=== PATIENT | male | born 1990 ===

== ENCOUNTER 2017-10-23 14:27 | Inpatient (IN) | payer MEDICAID, OTHER ==
[2017-10-23 14:58] VITALS: O2SAT 99
--- NOTE | 2017-10-23 15:54 | ED PDOC ---
HPI: Psych/Substance Abuse Time Seen by Provider: 10/23/17 15:01 Chief Complaint (Nursing): Psychiatric Evaluation Chief Complaint (Provider): Psychiatric Evaluation History Per: Patient History/Exam Limitations: no limitations Onset/Duration Of Symptoms: Days (x1) Current Symptoms Are (Timing): Still Present Modifying Factor(s): None Additional Complaint(s): 27 y/o male with a history of anxiety and depression presents to the ED for psychiatric evaluation due to feeling overwhelmed from stress and would like to speak with someone. Patient was told last night by his girlfriend whom he lives with that she has been having an affair. He has also been feeling stressed due to school. Patient is not currently on any medication for his anxiety or depression. He denies any previous suicidal attempts, any suicidal or homicidal thoughts. Patient has no current plan. 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 Past Medical History Reviewed: Historical Data, Nursing Documentation, Vital Signs Vital Signs: Last Vital Signs Temp 98.5 F 10/23/17 14:55 Pulse 115 H 10/23/17 14:55 Resp 19 10/23/17 14:55 BP 124/80 10/23/17 14:55 Pulse Ox 99 10/23/17 14:55 - Medical History PMH: Anxiety, Depression - Surgical History Surgical History: No Surg Hx - Family History Family History: States: Unknown Family Hx - Living Arrangements Living Arrangements: Other (with girlfriend) - Social History Current smoker - smoking cessation education provided: No Ex-Smoker (has not smoked in the last 12 months): No Alcohol: Social (Patient admits to drinking more this past week) Drugs: Cannabis - Home Medications Home Medications: Ambulatory Orders Medication Instructions Recorded No Known Home Med 10/23/17 - Allergies Allergies/Adverse Reactions: Allergies Allergy/AdvReac Type Severity Reaction Status Date / Time No Known Allergies Allergy Verified 10/23/17 14:52 Review of Systems ROS Statement: Except As Marked, All Systems Reviewed And Found Negative Psych: Positive for: Anxiety, Depression, Other (feeling overwhelmed and stressed) Physical Exam - Reviewed Nursing Documentation Reviewed: Yes Vital Signs Reviewed: Yes - Physical Exam Appears: Positive for: Non-toxic, No Acute Distress (tearful, anxious appearing) Head Exam: Positive for: ATRAUMATIC, NORMOCEPHALIC Skin: Positive for: Normal Color, Warm, Dry Eye Exam: Positive for: EOMI, PERRL Neck: Positive for: Painless ROM, Supple Cardiovascular/Chest: Positive for: Regular Rate, Rhythm Respiratory: Positive for: Normal Breath Sounds. Negative for: Decreased Breath Sounds, Accessory Muscle Use, Respiratory Distress Gastrointestinal/Abdominal: Positive for: Soft. Negative for: Tenderness, Distended, Guarding Extremity: Positive for: Normal ROM Neurologic/Psych: Positive for: Alert, Oriented (x3), Gait (steady in ED) - Laboratory Results Result Diagrams: 10/23/17 16:41 10/23/17 16:41 - ECG O2 Sat by Pulse Oximetry: 99 (RA) Pulse Ox Interpretation: Normal Medical Decision Making Medical Decision Making: Time: 14:55 Impression: Anxiety and depression Initial Plan: -CRISIS evaluation 16:00 Patient is requesting admission due to his current emotional state. Patient does not wish to return home. Diagnosis is depression as per Dr. Arias. * EtOH serum * CMP * Drug screening * CBC * Urinalysis 1730 Labs reviewed, patient is medically stable for psychiatric admission. On re-evaluation, patient resting comfortably with no additional complaints at this time. On exam, patient remains AAOx3, in no acute distress. On exam, neck is supple, lungs CTA, cardiac RRR, abdomen is soft and non-tender, neuro exam shows no focal findings. Arrangements made for admission. Scribe Attestation: Documented by Wyatt Moreno acting as a scribe for Ute Seo PA-C. Scribe Attestation: All medical record entries made by the Scribe were at my direction and personally dictated by me. I have reviewed the chart and agree that the record accurately reflects my personal performance of the history, physical exam, medical decision making, and the department course for this patient. I have also personally directed, reviewed, and agree with the discharge instructions and disposition. Disposition - Clinical Impression Clinical Impression: Depression - Patient ED Disposition Is Patient to be Admitted: Yes Counseled Patient/Family Regarding: Diagnosis - Disposition Disposition Time: 17:33 Condition: FAIR - Pt Status Changed To: Hospital Disposition Of: Inpatient - Admit Certification Admit to Inpatient:: After my assessment, the patient will require hospitalization for at least two midnights. This is because of the severity of symptoms shown, intensity of services needed, and/or the medical risk in this patient being treated as an outpatient. - POA Present On Arrival: None Results - Lab Results Lab Results: 10/23/17 10/23/17 10/23/17 16:41 16:41 16:17 WBC 9.0 RBC 5.51 Hgb 15.0 Hct 43.7 MCV 79.3 L MCH 27.2 MCHC 34.2 RDW 13.7 Plt Count 316 MPV 7.7 Neut % (Auto) 74.4 Lymph % (Auto) 17.5 L Leslie % (Auto) 7.5 Eos % (Auto) 0.3 Baso % (Auto) 0.3 Neut # (Auto) 6.7 Lymph # (Auto) 1.6 Leslie # (Auto) 0.7 Eos # (Auto) 0.0 Baso # (Auto) 0.0 Sodium 144 Potassium 4.1 Chloride 102 Carbon Dioxide 26 Anion Gap 20 BUN 9 Creatinine 0.7 L Est GFR ( Amer) > 60 Est GFR (Non-Af Amer) > 60 Random Glucose 115 H Calcium 9.8 Total Bilirubin 0.9 AST 21 ALT 29 Alkaline Phosphatase 125 Total Protein 8.7 H Albumin 4.6 Globulin 4.1 H Albumin/Globulin Ratio 1.1 Urine Color Yellow Urine Clarity Slighty-cloudy Urine pH 6.0 Ur Specific [place] 1.025 Urine Protein 30 Urine Glucose (UA) Neg Urine Ketones Trace Urine Blood Small Urine Nitrate Negative Urine Bilirubin Negative Urine Urobilinogen 0.2-1.0 Ur Leukocyte Esterase Neg Urine RBC (Auto) 9 H Urine Microscopic WBC 2 Urine Opiates Screen Urine Methadone Screen Ur Barbiturates Screen Ur Phencyclidine Scrn Ur Amphetamines Screen U Benzodiazepines Scrn U Oth Cocaine Metabols U Cannabinoids Screen Alcohol, Quantitative < 10 10/23/17 16:17 WBC RBC Hgb Hct MCV MCH MCHC RDW Plt Count MPV Neut % (Auto) Lymph % (Auto) [place] % (Auto) Eos % (Auto) Baso % (Auto) Neut # (Auto) Lymph # (Auto) Leslie # (Auto) Eos # (Auto) Baso # (Auto) Sodium Potassium Chloride Carbon Dioxide Anion Gap BUN Creatinine Est GFR ( Amer) Est GFR (Non-Af Amer) Random Glucose Calcium Total Bilirubin AST ALT Alkaline Phosphatase Total Protein Albumin Globulin Albumin/Globulin Ratio Urine Color Urine Clarity Urine pH Ur Specific [place] Urine Protein Urine Glucose (UA) Urine Ketones Urine Blood Urine Nitrate Urine Bilirubin Urine Urobilinogen Ur Leukocyte Esterase Urine RBC (Auto) Urine Microscopic WBC Urine Opiates Screen Negative Urine Methadone Screen Negative Ur Barbiturates Screen Negative Ur Phencyclidine Scrn Negative Ur Amphetamines Screen Negative U Benzodiazepines Scrn Negative U Oth Cocaine Metabols Negative U Cannabinoids Screen Negative Alcohol, Quantitative
[2017-10-23 16:35] LABS: URINE BILIRUBIN NEGATIVE (NEGATIVE); URINE BLOOD SMALL (NEGATIVE); URINE CLARITY SLIGHTY-CLOUDY (Clear); URINE COLOR YELLOW (YELLOW); URINE GLUCOSE (UA) NEG (Normal); URINE LEUKOCYTE ESTERASE NEG Leu/uL (Negative); URINE PROTEIN 30 mg/dL (NEGATIVE); URINE UROBILINOGEN 0.2-1.0 mg/dL (0.2-1.0)
[2017-10-23 16:45] LABS: BASO % 0.3 % (0.0-2.0); EOS % 0.3 % (0.0-4.0); LYMPH # 1.6 K/uL (1.0-4.3); LYMPH % 17.5 % (20.0-40.0); MEAN CELL VOLUME 79.3 fl (80.0-94.0); MEAN CORPUSCULAR HEMOGLOBIN 27.2 pg (27.0-31.0); MEAN CORPUSCULAR HGB CONC 34.2 g/dL (33.0-37.0); MEAN PLATELET VOLUME 7.7 fl (7.2-11.7); MONO # 0.7 K/uL (0.0-0.8); MONO % 7.5 % (0.0-10.0); NEUT # 6.7 K/uL (1.8-7.0); NEUT % 74.4 % (50.0-75.0); NRBC % 0.5 % (0.0-0.0); RBC 5.51 Mil/uL (4.40-5.90); RED CELL DISTRIBUTION WIDTH 13.7 % (11.5-14.5)
[2017-10-23 16:48] LABS: BARBITURATES, UR NEGATIVE (NEGATIVE); BENZODIAZEPINES, UR NEGATIVE (NEGATIVE); OPIATES, UR NEGATIVE (NEGATIVE); PHENCYCLIDINE, UR NEGATIVE (NEGATIVE)
[2017-10-23 16:55] LABS: ALB/GLOB RATIO 1.1 (1.0-2.1); ALBUMIN 4.6 g/dL (3.5-5.0); ALT/SGPT 29 U/L (21-72); AST/SGOT 21 U/L (17-59); BLOOD UREA NITROGEN 9 mg/dl (9-20); CALCIUM 9.8 mg/dL (8.4-10.2); GFR AFRICAN-AMERICAN > 60; GFR NON-AFRICAN AMERICAN > 60
[2017-10-23] MEDS ORDERED: Magnesium Hydroxide Susp 30 ml UD PO PRN (20:18)
[2017-10-23] MEDS ORDERED: DiphenhydrAMINE 50 mg/ml Inj IM PRN (20:18)
--- NOTE | 2017-10-23 20:56 | PCM.BM ---
<Rachana Jasso - Last Filed: 10/23/17 20:54> Treatment Plan Problems - Problems identified on initial assessmt Hopelessness/Helplessness Date Initiated: 10/23/17 Time Initiated: 20:54 Assessment reference: NA Status: Active Altered Sleep Pattern Date Initiated: 10/23/17 Time Initiated: 20:56 Assessment reference: NA Status: Active Treatment assets and liabiliti Patient Assests: self-reliant, ADL independent, physically healthy, good support system, negotiates basic needs Patient Liabilities: relationship conflicts - Milieu Protocol Maintain good personal hygiene: daily Remind patient to perform daily oral care , daily Assist patient to perform ADL's, every shift Encourage regular showers Conduct patient checks and document Observation sheet: Q15 minutes Maintain personal safety: every shift Educate patient to report safety concerns to staff, every shift Monitor environment for contraband/sharps Medication safety: Monitor for expected outcome, potential side effects: every shift, Assess barriers to learning: every shift, Assess readiness for medication education: every shift <Huong Nguyen - Last Filed: 10/26/17 16:18> Treatment assets and liabiliti Patient Assests: adapts well, cooperative, educated, insightful (pt minimizing sxs leading to admission-refusing medications-ambivalence regarding aftercare), motivated, resourceful, self-reliant, cognitively intact, good interpersonal skills Patient Liabilities: relationship conflicts, substance abuse Family Contact Family involvement: Family/SO is involved Family contact: Family has been contacted by patient (pt. has been communciating with cousin/nephew but has not notified mother of admission), Patient declines to allow family contact at present - Goals for Treatment Patient goals for treatment: Patient to continue stabilization on 3NP through medication management and group/supportive therapy. Patient to be encouraged to attend groups regularly to promote self-awareness, compliance, and improve insight, coping skills and self-esteem. Patient to be provided with referral for appropriate level of aftercare to reduce risk of future hospitalizations and ensure safety in the community. Discharge/Continuing Care - Education Needs Education Needs: Patient Medication, Patient Diagnosis/Disease Process, Patient Coping Skills, Patient Aftercare Safety Plan - Discharge Discharge Criteria: Tolerates medication w/o severe side effects, Free of Suicidal thoughts, Normal sleep pattern, Ability to care for self, Reduction of target symptoms Discharge to:: Home, With Family - Treatment Team Participation Patient/Family/SO Statement: 10/26/17 16:21 Pt. attended tx team this morning and was able to engage in discussion regarding progress on 3NP. Pt. superficially cooperative and pleasant. Pt. mostly socially withdrawn on 3NP. Pt. appears to be minimizing precursors to hospitalization and is refusing medications stating "I don't think I need them. I'll be fine." Pt. agreeable but ambivalent regarding aftercare stating "Ill go to student counseling. I have to focus on school." Psychoeducation regarding importance of prioritizing aftercare provided. Pt. reports improvement in depression and anxity since admission. Pt. denies SI/HI and is able to contract for safety on 3NP. No harmful behaviors noted. Discussed with Family/SO: No Was Patient/Family/SO present at Treatment Team Meeting: Yes <Charissa Stevens - Last Filed: 10/27/17 08:41> - Diagnosis (1) Depression Status: Acute Interventions: psychotherapy, pharmacotherapy 10/27/17 08:41
[2017-10-24 07:11] LABS: T4 10.5 ug/dl (5.5-11.0)
--- NOTE | 2017-10-24 14:45 | PCM.PSYCH ---
Initial Psychiatric Evaluation - Initial Psychiatric Evaluation Type of Admission: Voluntary Legal Status: Capacity Chief Complaint (in patient's own words): I feel I am in shock Patient's Reaction to Hospitalization: pt requested help History of Present Illness and Precipitating Events: pt without previous psychiatric diagnosis or treatment , reportedly has been having increasing conflict with his girl friend for about past three months as he was unable to spend enough time with her , day before presenting to ER pt realized she is having an affair pt became increasingly depressed , feeling hopeless and helpless, on day of evaluation he reported to his cousin he was having suicidal ideations, he advised him to come to hospital pt reported feeling helpless and hopeless with passive suicidal ideations , no plan on the unit, reported decreased sleep with early insomnia, poor appetite , increased anxiety and constant crying no reported manic symptoms, no reported psychotic symptoms Current Medications: Active Medications Generic Name Dose Route Start Last Admin Trade Name Freq PRN Reason Stop Dose Admin Acetaminophen 650 mg 10/23/17 20:18 Tylenol 325mg Tab PO Q4 PRN Pain, moderate (4-7) Al Hydrox/Mg Hydrox/Simethicone 30 ml 10/23/17 20:18 Maalox Plus 30 Ml PO Q4 PRN Dyspepsia Diphenhydramine HCl 50 mg 10/23/17 20:18 Benadryl IM Q6 PRN Extrapyramidal S/S Unable PO Diphenhydramine HCl 50 mg 10/23/17 20:18 Benadryl PO Q6 PRN Extrapyramidal Symptoms Escitalopram Oxalate 5 mg 10/24/17 11:30 Lexapro PO DAILY CONRAD Haloperidol 5 mg 10/23/17 20:18 Haldol PO Q4 PRN Agitation Haloperidol Lactate 5 mg 10/23/17 20:18 Haldol IM Q4 PRN Agitation, Unable to Take PO Lorazepam 2 mg 10/23/17 20:18 Ativan IM Q4 PRN Anxiety/Agitation,Unable PO Lorazepam 1 mg 10/23/17 20:18 Ativan PO Q4 PRN Anxiety/Agitation Magnesium Hydroxide 30 ml 10/23/17 20:18 Milk Of Magnesia PO HS PRN Constipation Trazodone HCl 50 mg 10/24/17 22:00 Desyrel PO HS CONRAD Past Psychiatric History - Past Psychiatric History Previous Treatment History: Inpatient Explanation of prior treatment: non reported History of ETOH/Drug Use: non reported urine toxicology negative Pertinent Medical Hx (Current Medical&Sleep Prob, Allergies): Allergies Allergy/AdvReac Type Severity Reaction Status Date / Time No Known Allergies Allergy Verified 10/23/17 14:52 No Known Home Med 10/23/17 Mental Status Examination - Personal Presentation Personal Presentation: Looks stated age - Affect Affect: Constricted - Motor Activity Motor Activity: Psychomotor Retardation - Reliability in Providing Information Reliability in Providing Information: Fair - Speech Speech: Relevant - Mood Mood: Depressed, Anxious - Formal Thought Process Formal Thought Process: Circumstantial - Hallucinations/Delusions Additional comments: pt denied psychotic symptoms, non elicited - Obsessions/Compulsions Obsessions: No Compulsions: No - Cognitive Functions Orientation: Person, Place, Situation Sensorium: Alert Attention/Concentration: Attentive Estimate of Intelligence: Average - Risk Risk: Suicidal, Diminished functioning - Strength & Assets Inventory Strength & Assets Inventory: Education - Limitations Additional comments: social support DSM 5 DX - DSM 5 DSM 5 Diagnosis: major depression single episode severe without psychotic features - Recommended/Plan of Treatment Treatment Recommendations and Plan of Treatment: start lexapro 5mg daily with plan to uptitrate trazodone 50mg qhs for insomnia CBT group and supportive therapy
--- NOTE | 2017-10-24 16:08 | CP.PCM.CON ---
History of Present Illness - History of Present Illness History of Present Illness: This is a 27 yo male with pmh of anxiety and depression who presented to the ED due to anxiety and stress after finding that his girlfriend that she has been having an affair. He denies suicidal ideation and has no plan for any suicidal attempts. Denies any other problems. Review of Systems - Review of Systems Review of Systems: A 12 point review of systems was conducted and found to be negative other than what was mentioned in the HPI. Past Patient History - Infectious Disease Hx of Infectious Diseases: None - Past Social History Alcohol: Social (Patient admits to drinking more this past week) Drugs: Cannabis - CARDIAC Hx Cardiac Disorders: No Hx Heart Murmur: Yes - PULMONARY Hx Tuberculosis: No - NEUROLOGICAL HX Cerebrovascular Accident: No Hx Seizures: No - HEENT Hx HEENT Problems: No - ENDOCRINE/METABOLIC Hx Endocrine Disorders: No - HEMATOLOGICAL/ONCOLOGICAL Hx Cancer: No Hx Human Immunodeficiency Virus (HIV): No - INTEGUMENTARY Hx Dermatological Problems: No - MUSCULOSKELETAL/RHEUMATOLOGICAL Hx Musculoskeletal Disorders: No - GASTROINTESTINAL Hx Bowel Surgery: No - GENITOURINARY/GYNECOLOGICAL Hx Genitourinary Disorders: No Hx Sexually Transmitted Disorders: No - PSYCHIATRIC Hx Bipolar Disorder: No Hx Depression: Yes Hx Substance Use: No - SURGICAL HISTORY Hx Surgeries: No - ANESTHESIA Hx Anesthesia: No Meds Allergies/Adverse Reactions: Allergies Allergy/AdvReac Type Severity Reaction Status Date / Time No Known Allergies Allergy Verified 10/23/17 14:52 - Medications Medications: Current Medications Acetaminophen (Tylenol 325mg Tab) 650 mg PO Q4 PRN PRN Reason: Pain, moderate (4-7) Al Hydrox/Mg Hydrox/Simethicone (Maalox Plus 30 Ml) 30 ml PO Q4 PRN PRN Reason: Dyspepsia Diphenhydramine HCl (Benadryl) 50 mg IM Q6 PRN PRN Reason: Extrapyramidal S/S Unable PO Diphenhydramine HCl (Benadryl) 50 mg PO Q6 PRN PRN Reason: Extrapyramidal Symptoms Escitalopram Oxalate (Lexapro) 5 mg PO DAILY CONRAD Haloperidol (Haldol) 5 mg PO Q4 PRN PRN Reason: Agitation Haloperidol Lactate (Haldol) 5 mg IM Q4 PRN PRN Reason: Agitation, Unable to Take PO Lorazepam (Ativan) 2 mg IM Q4 PRN PRN Reason: Anxiety/Agitation,Unable PO Lorazepam (Ativan) 1 mg PO Q4 PRN PRN Reason: Anxiety/Agitation Magnesium Hydroxide (Milk Of Magnesia) 30 ml PO HS PRN PRN Reason: Constipation Trazodone HCl (Desyrel) 50 mg PO HS [facility] Physical Exam - Additional Findings Additional findings: Physical exam: Constitutional- cooperative, awake, alert Head- NCAT, PERRL Eye- PERRL, EOMI ENT- normal exam, MMM. Neck- normal inspection, supple, no JVD Respiratory- CTAB, no wheezes rales rhonchi Cardiovascular- RRR, +S1, +S2 no MRG GI/Abdominal- normal bowel sounds, soft, no mass, no hsm Skin- warm, dry Extremities Exam- normal capillary refill, normal inspection Neurological Exam- alert, awake, oriented Psych- depressed mood, normal affect Results - Vital Signs Recent Vital Signs: Last Vital Signs Temp 98.5 F 10/23/17 17:57 Pulse 115 H 10/23/17 17:57 Resp 19 10/23/17 17:57 BP 124/80 10/23/17 17:57 Pulse Ox 99 10/23/17 18:02 - Labs Result Diagrams: 10/23/17 16:41 10/23/17 16:41 Labs: Laboratory Results - last 24 hr 10/23/17 10/23/17 10/23/17 16:17 16:17 16:41 WBC RBC Hgb Hct MCV MCH MCHC RDW Plt Count MPV Neut % (Auto) Lymph % (Auto) [place] % (Auto) Eos % (Auto) Baso % (Auto) Neut # (Auto) Lymph # (Auto) [place] # (Auto) Eos # (Auto) Baso # (Auto) Sodium 144 Potassium 4.1 Chloride 102 Carbon Dioxide 26 Anion Gap 20 BUN 9 Creatinine 0.7 L Est GFR ( Amer) > 60 Est GFR (Non-Af Amer) > 60 Random Glucose 115 H Hemoglobin A1c Calcium 9.8 Total Bilirubin 0.9 AST 21 ALT 29 Alkaline Phosphatase 125 Total Protein 8.7 H Albumin 4.6 Globulin 4.1 H Albumin/Globulin Ratio 1.1 Triglycerides Cholesterol LDL Cholesterol Direct HDL Cholesterol Thyroxine (T4) TSH 3rd Generation Urine Color Yellow Urine Clarity Slighty-cloudy Urine pH 6.0 Ur Specific [place] 1.025 Urine Protein 30 Urine Glucose (UA) Neg Urine Ketones Trace Urine Blood Small Urine Nitrate Negative Urine Bilirubin Negative Urine Urobilinogen 0.2-1.0 Ur Leukocyte Esterase Neg Urine RBC (Auto) 9 H Urine Microscopic WBC 2 Urine Opiates Screen Negative Urine Methadone Screen Negative Ur Barbiturates Screen Negative Ur Phencyclidine Scrn Negative Ur Amphetamines Screen Negative U Benzodiazepines Scrn Negative U Oth Cocaine Metabols Negative U Cannabinoids Screen Negative Alcohol, Quantitative < 10 10/23/17 10/24/17 10/24/17 16:41 05:50 05:50 WBC 9.0 RBC 5.51 Hgb 15.0 Hct 43.7 MCV 79.3 L MCH 27.2 MCHC 34.2 RDW 13.7 Plt Count 316 MPV 7.7 Neut % (Auto) 74.4 Lymph % (Auto) 17.5 L [place] % (Auto) 7.5 Eos % (Auto) 0.3 Baso % (Auto) 0.3 Neut # (Auto) 6.7 Lymph # (Auto) 1.6 [place] # (Auto) 0.7 Eos # (Auto) 0.0 Baso # (Auto) 0.0 Sodium Potassium Chloride Carbon Dioxide Anion Gap BUN Creatinine Est GFR ( Amer) Est GFR (Non-Af Amer) Random Glucose Hemoglobin A1c 5.3 Calcium Total Bilirubin AST ALT Alkaline Phosphatase Total Protein Albumin Globulin Albumin/Globulin Ratio Triglycerides 56 Cholesterol 151 LDL Cholesterol Direct 84 HDL Cholesterol 42 Thyroxine (T4) 10.5 TSH 3rd Generation 2.22 Urine Color Urine Clarity Urine pH Ur Specific [place] Urine Protein Urine Glucose (UA) Urine Ketones Urine Blood Urine Nitrate Urine Bilirubin Urine Urobilinogen Ur Leukocyte Esterase Urine RBC (Auto) Urine Microscopic WBC Urine Opiates Screen Urine Methadone Screen Ur Barbiturates Screen Ur Phencyclidine Scrn Ur Amphetamines Screen U Benzodiazepines Scrn U Oth Cocaine Metabols U Cannabinoids Screen Alcohol, Quantitative Assessment & Plan - Assessment and Plan (Free Text) Plan: ASSESSMENT/PLAN This is a 27 yo male admitted to the inpatient psychiatry walker for depression 1) Major depression, single episode, severe, without psychotic features - Management as per psychiatry - Labwork, vitals unremarkable
--- NOTE | 2017-10-25 14:59 | PCM.PYCHPN ---
Psychiatric Progress Note - Psychiatric Progress Note Patient seen today, length of contact: pt evaluated discussed with team chart reviewed Patient Chief Complaint: I am mourning the relation but I need to concentrate on myself Problems Identified/Issues Discussed: pt evaluated, continues to present with depressed mood and anxious affect reported mourning along term relation, pt showing insight agrees he needs to concentrate on his recovery , agreed to start outpatient therapy with school counseling services pt compliant with lexapro, no reported side effects, discussed increasing it to 10mg pt continues to report passive suicidal ideations feeling anhedonic at times but denied active plans or intent on the unit , discussed with pt challenging current negative thoughts and encouraged to attend groups Medical Problems: non reported DSM 5 Symptoms Update: major depression single episode severe without psychotic features Medication Change: Yes (increase lexapro) Medical Record Reviewed: Yes Mental Status Examination - Cognitive Function Orientation: Person, Place, Situation Attention: WNL Concentration: WNL Association: WNL Fund of Knowledge: WN Decription of patient's judgement and insights: fair insight and judgment - Mood Mood: Depressed, Anxious - Affect Affect: Constricted - Formal Thought Process Formal Thought Process: Circumstantial Psychotic Thoughts and Behaviors: pt denied perceptual disturbances, non elicited - Suicidal Ideation Suicidal Ideation: No - Homicidal Ideation Homicidal Ideation: No Goal/Treatment Plan - Goal/Treatment Plan Need for Continued Stay: Discharge may exacerbated symptoms Progress Toward Problem(s) and Goals/Treatment Plan: increase lexapro 5mg bid trazodone 50mg qhs for insomnia CBT group and supportive therapy Estimated Date of D/C: 10/27/17
[2017-10-26] MEDS: Alum-Mag Hydrox-Simethicone Susp (30 mL) PO PRN (03:43)
--- NOTE | 2017-10-26 14:51 | PCM.PYCHPN ---
Psychiatric Progress Note - Psychiatric Progress Note Patient seen today, length of contact: pt evaluated discussed with team chart reviewed Patient Chief Complaint: I prefer not to take medicine, I want to continue with therapy only Problems Identified/Issues Discussed: pt evaluated with treatment team , reported better mood, presenting with brighter affect, able to verbalize coping skills with his current loss, pt having social support from his cousin and mother, also motivated to start therapy with college counseling , pt refusing medications, discussed with him that antidepressant are beneficial when starting therapy , educated pt risks versus benifits pt attending groups and more interactive with staff denied any current suicidal or homicidal ideations denied perceptual disturbances Medical Problems: non reported DSM 5 Symptoms Update: major depression recurrent severe without psychotic features Medication Change: No Medical Record Reviewed: Yes Mental Status Examination - Cognitive Function Orientation: Person, Place, Situation Attention: WNL Concentration: WNL Association: WNL Fund of Knowledge: WN Decription of patient's judgement and insights: fair insight and judgment - Mood Mood: Anxious, Neutral - Affect Affect: Constricted - Speech Speech: Appropriate - Formal Thought Process Formal Thought Process: No Impairment Psychotic Thoughts and Behaviors: pt denied perceptual disturbances, non elicited - Suicidal Ideation Suicidal Ideation: No - Homicidal Ideation Homicidal Ideation: No Goal/Treatment Plan - Goal/Treatment Plan Need for Continued Stay: Discharge may exacerbated symptoms Progress Toward Problem(s) and Goals/Treatment Plan: encourage medication compliance lexapro 5mg bid trazodone 50mg qhs for insomnia CBT group and supportive therapy Estimated Date of D/C: 10/27/17
[2017-10-27] MEDS: Alum-Mag Hydrox-Simethicone Susp (30 mL) PO PRN (07:29)
--- NOTE | 2017-10-27 10:58 | PCM.PYCHDC ---
Mental Status Examination - Mental Status Examination Orientation: Person, Place, Situation Memory: Intact Mood: Neutral Speech: Appropriate Attention: WNL Concentration: WNL Association: WNL Fund of Knowledge: WNL Formal Thought Process: No Impairment Description of patient's judgement and insight: fair insight and judgment Psychotic Thoughts and Behaviors: pt denied perceptual disturbances, non elicited Suicidal Ideation: No Current Homicidal Ideation?: No Discharge Summary - Discharge Note Reason for Hospitalization: pt requested help pt without previous psychiatric diagnosis or treatment , reportedly has been having increasing conflict with his girl friend for about past three months as he was unable to spend enough time with her , day before presenting to ER pt realized she is having an affair pt became increasingly depressed , feeling hopeless and helpless, on day of evaluation he reported to his cousin he was having suicidal ideations, he advised him to come to hospital pt reported feeling helpless and hopeless with passive suicidal ideations , no plan on the unit, reported decreased sleep with early insomnia, poor appetite , increased anxiety and constant crying no reported manic symptoms, no reported psychotic symptoms Consultations:: List each consultation separately and include: 1. Reason for request. 2. Findings. 3. Follow-up Summary of Hospital Course include:: 1. Description of specific treatment plan utilized for patients during their course of treatmen. 2. Summarize the time- course for resolution of acute symptoms and/or regressed behaviors. 3. Describe issues identified and worked on during hospitalization. 4. Describe medication utilized. 5. Describe medical problems identified and treated. 6. Reassessment of suicide risk Summary of Hospital Course: pt on admission was started on lexapro 5mg CBT, supportive and group therapy provided, pt was compliant with treatment, on discharge mental status was stable, denied any current suicidal or homicidal ideations denied perceptual disturbances follow up arranged by psychotherapist social worker for outpatient treatment and therapy - Diagnosis (1) Depression Status: Acute - Final Diagnosis (DSM 5) Condition upon Discharge: FAIR DSM 5: major depression single episode severe without psychotic features Disposition: HOME/ ROUTINE Follow-up Treatment Plan: encourage medication compliance lexapro 5mg bid trazodone 50mg qhs for insomnia CBT group and supportive therapy Prescriptions/Medication Reconciliation: Escitalopram [Lexapro] 5 mg PO DAILY 30 Days #30 tab - Antipsychotic Medications Pt discharged on 2 or more routine antipsychotic medications: No
[2017-10-27 11:20] VITALS: BP 121/87; PULSE 91; RESP 18; TEMP 97.9
== END 2017-10-27 10:22 | disposition home or self-care (01) | DRG 430 ==
LOC: H.ER 14:27 → H.ERHOLD 17:33 → H.PSYCH 18:14
PROVIDERS: ADMIT Psychiatry & Neurology Psychiatry; ATTEND Psychiatry & Neurology Psychiatry
PROC: GZHZZZZ Group Psychotherapy (ICD-10-PCS; principal; 2017-10-23)
PROC: GZ58ZZZ Individual Psychotherapy, Cognitive-Behavioral (ICD-10-PCS; 2017-10-23)
PROC: GZ56ZZZ Individual Psychotherapy, Supportive (ICD-10-PCS; 2017-10-23)
DX: F32.2 Major depressive disorder, single episode, severe without psychotic features (principal); R45.851 Suicidal ideations; F41.9 Anxiety disorder, unspecified; G47.00 Insomnia, unspecified

== ENCOUNTER 2017-11-14 14:02 | Emergency (ER) | payer MEDICAID, OTHER ==
[2017-11-14 14:09] VITALS: PULSE 84; RESP 20; TEMP 97.8; O2SAT 98
--- NOTE | 2017-11-14 14:23 | ED PDOC ---
HPI: Psych/Substance Abuse Time Seen by Provider: 11/14/17 14:16 Chief Complaint (Nursing): Psychiatric Evaluation History Per: Patient Onset/Duration Of Symptoms: Other (2 weeks) Current Symptoms Are (Timing): Still Present Suicide/Self Injury Attempted (Context): None Modifying Factor(s): None Severity: Mild Associated Symptoms: Depression. denies: Suicidal Thoughts, Suicidal Plan Additional Complaint(s): Depressed over incident that occurred 2 weeks ago. Denies suicidal or homicidal ideation. Past Medical History Vital Signs: Last Vital Signs Temp 97.8 F 11/14/17 14:06 Pulse 84 11/14/17 14:06 Resp 20 11/14/17 14:06 BP Pulse Ox 98 11/14/17 14:06 - Medical History PMH: Anxiety, Depression Denies: Bipolar Disorder, Diabetes, Hepatitis, HIV, HTN, Seizures, Sexually Transmitted Disease - Family History Family History: States: Unknown Family Hx - Home Medications Home Medications: Ambulatory Orders Medication Instructions Recorded Escitalopram [Lexapro] 5 mg PO DAILY 30 Days #30 tab 10/27/17 - Allergies Allergies/Adverse Reactions: Allergies Allergy/AdvReac Type Severity Reaction Status Date / Time No Known Allergies Allergy Verified 11/14/17 14:05 Review of Systems ROS Statement: Except As Marked, All Systems Reviewed And Found Negative Psych: Positive for: Depression. Negative for: Suicidal ideation Physical Exam - Reviewed Nursing Documentation Reviewed: Yes Vital Signs Reviewed: Yes - Physical Exam Appears: Positive for: Non-toxic, No Acute Distress Head Exam: Positive for: ATRAUMATIC, NORMAL INSPECTION, NORMOCEPHALIC Skin: Positive for: Normal Color, Warm, DRY Eye Exam: Positive for: EOMI, Normal appearance, PERRL ENT: Positive for: Normal ENT Inspection Neck: Positive for: Normal, Painless ROM Cardiovascular/Chest: Positive for: Regular Rate, Rhythm Respiratory: Positive for: CNT, Normal Breath Sounds Gastrointestinal/Abdominal: Positive for: Normal Exam, Soft Back: Positive for: Normal Inspection Extremity: Positive for: Normal ROM Neurologic/Psych: Positive for: Alert, Oriented - ECG O2 Sat by Pulse Oximetry: 98 Disposition - Clinical Impression Clinical Impression: Depression - Disposition Referrals: [facility] [Outside] Disposition: Routine/Home Disposition Time: 15:07 Condition: FAIR Instructions: Depression Forms: [employer] (Belarusian)
== END 2017-11-14 15:41 | disposition home or self-care (01) ==
LOC: H.ER 14:02
DX: F32.9 Major depressive disorder, single episode, unspecified (principal); F41.9 Anxiety disorder, unspecified

== ENCOUNTER 2018-02-25 10:39 | Emergency (ER) | payer MEDICAID, OTHER ==
[2018-02-25 10:43] VITALS: BP 126/81; PULSE 77; RESP 16; TEMP 97.8; O2SAT 98; BMI 29.5
--- NOTE | 2018-02-25 11:16 | ED PDOC ---
Lower Extremity Pain/Injury Time Seen by Provider: 02/25/18 10:41 Chief Complaint (Nursing): Lower Extremity Problem/Injury Chief Complaint (Provider): Arm pain History Per: Patient Additional Complaint(s): 27 yo male, no PMH, presents to ED for evaluation of puncture wound. Pt reports he was jumping over the fence yesterday and caught his foot on the wire fence, ustained abrasion to rt. ankle w/ redness/ swelling w/ minimal bleeding. stated the bleeding didn't stopped fr. yesterday. TD 4 yrs. 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 Past Medical History Reviewed: Nursing Documentation, Vital Signs Vital Signs: Last Vital Signs Temp 97.8 F 02/25/18 10:42 Pulse 77 02/25/18 10:42 Resp 16 02/25/18 10:42 BP 126/81 02/25/18 10:42 Pulse Ox 98 02/25/18 10:42 - Medical History PMH: Anxiety, Depression Denies: Bipolar Disorder, Diabetes, Hepatitis, HIV, HTN, Seizures, Sexually Transmitted Disease - Family History Family History: States: Unknown Family Hx - Living Arrangements Living Arrangements: With Family - Social History Current smoker - smoking cessation education provided: No Alcohol: Social Drugs: Denies - Home Medications Home Medications: Ambulatory Orders Medication Instructions Recorded Escitalopram [Lexapro] 5 mg PO DAILY 30 Days #30 tab 10/27/17 Cephalexin [cephalexin] 500 mg PO BID #14 cap 02/25/18 Ibuprofen [Motrin] 600 mg PO Q6 #20 tab 02/25/18 - Allergies Allergies/Adverse Reactions: Allergies Allergy/AdvReac Type Severity Reaction Status Date / Time No Known Allergies Allergy Verified 11/14/17 14:05 Review of Systems ROS Statement: Except As Marked, All Systems Reviewed And Found Negative Skin: Positive for: Other (puncture wound) Physical Exam - Reviewed Nursing Documentation Reviewed: Yes Vital Signs Reviewed: Yes - Physical Exam Appears: Positive for: Well, Non-toxic, No Acute Distress Head Exam: Positive for: ATRAUMATIC, NORMAL INSPECTION, NORMOCEPHALIC Skin: Positive for: Normal Color, Warm, DRY Eye Exam: Positive for: EOMI, Normal appearance, PERRL ENT: Positive for: Normal ENT Inspection Neck: Positive for: Normal, Painless ROM Cardiovascular/Chest: Positive for: Regular Rate, Rhythm Respiratory: Positive for: CNT, Normal Breath Sounds Gastrointestinal/Abdominal: Positive for: Normal Exam, Soft Back: Positive for: Normal Inspection Extremity: Positive for: Normal ROM, Swelling, Other (puncture wound to lateral aspct of right ankle, mild erythema surrounding. no active bleeding at this time ) Neurologic/Psych: Positive for: Alert, Oriented - ECG O2 Sat by Pulse Oximetry: 98 Medical Decision Making Medical Decision Making: XR obtained: NAd, as read by PRO Keflex PO administered. T.dap UTD Site cleaned and dressed by policy writer typist. Wound care discussed. Pt referred to podiatry clinic Disposition - Clinical Impression Clinical Impression: Puncture wound - Patient ED Disposition Is Patient to be Admitted: No - Disposition Referrals: FAMILY PROVIDER,NO [Primary Care Provider] - Podiatry Clinic [Outside] Disposition: Routine/Home Disposition Time: 12:55 Condition: STABLE Prescriptions: Cephalexin [cephalexin] 500 mg PO BID #14 cap Ibuprofen [Motrin] 600 mg PO Q6 #20 tab Instructions: Wound Care (DC) Forms: [employer] (Frisian)
--- NOTE | 2018-02-25 11:57 | RAD ---
Date of service: 02/25/2018 PROCEDURE: Right Ankle Radiographs. HISTORY: puncture wound, edema COMPARISON: None FINDINGS: BONES: No acute fracture. JOINTS: Normal. No osteoarthritis. Ankle mortise maintained. Talar dome intact SOFT TISSUES: Small ankle joint effusion. OTHER FINDINGS: None. IMPRESSION: No demonstrated fracture, dislocation or evidence of osseous injury.
[2018-02-25] MEDS ORDERED: Absorbable Gelatin Sponge Size 12-7 ONE (12:49)
== END 2018-02-25 13:07 | disposition home or self-care (01) ==
LOC: SUPCPDRO 10:39 → H.ER 10:39
DX: Z86.59 Personal history of other mental and behavioral disorders (principal); Z23 Encounter for immunization

== ENCOUNTER 2018-03-12 05:10 | Emergency (ER) | payer OTHER ==
[2018-03-12 05:28] VITALS: BMI 30.9
--- NOTE | 2018-03-12 05:31 | ED PDOC ---
HPI: Psych/Substance Abuse Chief Complaint (Provider): ETOH History Per: Patient Additional Complaint(s): 27 yo male, no PMH, presents to ED BIB friends for evaluation of abdominal cramping, and severe nausea and vomiting after drinking Zehra. No drug use. <Sherita Cormier - Last Filed: 03/12/18 05:50> <Jose David Katz - Last Filed: 03/12/18 06:00> Time Seen by Provider: 03/12/18 05:18 Chief Complaint (Nursing): Alcohol Ingestion Past Medical History Reviewed: Nursing Documentation, Vital Signs - Medical History PMH: Anxiety, Depression Denies: Bipolar Disorder, Diabetes, Hepatitis, HIV, HTN, Seizures, Sexually Transmitted Disease - Family History Family History: States: Unknown Family Hx - Living Arrangements Living Arrangements: With Family - Social History Current smoker - smoking cessation education provided: Yes Alcohol: Social Drugs: Cannabis <Sherita Cormier A - Last Filed: 03/12/18 05:50> Vital Signs: Last Vital Signs Temp 98.7 F 03/12/18 05:19 Pulse 72 03/12/18 05:19 Resp 19 03/12/18 05:19 BP 125/80 03/12/18 05:19 Pulse Ox 99 03/12/18 05:19 <Jose David Katz - Last Filed: 03/12/18 06:00> - Home Medications Home Medications: Ambulatory Orders Medication Instructions Recorded Escitalopram [Lexapro] 5 mg PO DAILY 30 Days #30 tab 10/27/17 Cephalexin [cephalexin] 500 mg PO BID #14 cap 02/25/18 Ibuprofen [Motrin] 600 mg PO Q6 #20 tab 02/25/18 - Allergies Allergies/Adverse Reactions: Allergies Allergy/AdvReac Type Severity Reaction Status Date / Time No Known Allergies Allergy Verified 03/12/18 05:25 Review of Systems ROS Statement: Except As Marked, All Systems Reviewed And Found Negative Gastrointestinal: Positive for: Nausea, Vomiting <Sherita Cormier A - Last Filed: 03/12/18 05:50> Physical Exam - Reviewed Nursing Documentation Reviewed: Yes Vital Signs Reviewed: Yes - Physical Exam Appears: Positive for: Well, Non-toxic, No Acute Distress Head Exam: Positive for: ATRAUMATIC, NORMAL INSPECTION, NORMOCEPHALIC Skin: Positive for: Normal Color, Warm, DRY Eye Exam: Positive for: EOMI, Normal appearance, PERRL ENT: Positive for: Normal ENT Inspection Neck: Positive for: Normal, Painless ROM Cardiovascular/Chest: Positive for: Regular Rate, Rhythm Respiratory: Positive for: CNT, Normal Breath Sounds Gastrointestinal/Abdominal: Positive for: Normal Exam, Soft Back: Positive for: Normal Inspection Extremity: Positive for: Normal ROM Neurologic/Psych: Positive for: Alert, Oriented <Sherita Cormier - Last Filed: 03/12/18 05:50> Medical Decision Making Medical Decision Making: IV access established and treatment initiated with IVF, and Zofron Diagnostics ordered Case endorsed to ED MD, Dr. Katz, 0600 pending clinical sobriety <Sherita Cormier - Last Filed: 03/12/18 05:50> Medical Decision Makin:00 -Patient signed out to Dr. Chowdhury pending clinical sobriety. <Jose David Katz - Last Filed: 03/12/18 06:00> Disposition - Patient ED Disposition Is Patient to be Admitted: Transfer of Care - Disposition Disposition: Transfer of Care Disposition Time: 05:51 <Sherita Cormier - Last Filed: 03/12/18 05:50> - Disposition Disposition Time: 07:00 <Jose David Katz - Last Filed: 03/12/18 06:00> - Clinical Impression Clinical Impression: Alcohol ingestion - Disposition Condition: STABLE Forms: [employer] ([employer])
[2018-03-12] MEDS ORDERED: Sodium Chloride 0.9% 1,000 ML IV STA (05:32)
[2018-03-12 06:13] LABS: HEMOGLOBIN 14.7 g/dL (12.0-18.0); MEAN CELL VOLUME 80.3 fl (80.0-94.0); MEAN CORPUSCULAR HEMOGLOBIN 26.9 pg (27.0-31.0); MEAN CORPUSCULAR HGB CONC 33.5 g/dL (33.0-37.0); RBC 5.46 Mil/uL (4.40-5.90); RED CELL DISTRIBUTION WIDTH 14.2 % (11.5-14.5); WHITE BLOOD COUNT 13.5 K/uL (4.8-10.8)
[2018-03-12 06:21] LABS: ALB/GLOB RATIO 1.5 (1.0-2.1); ALBUMIN 4.6 g/dL (3.5-5.0); ALT/SGPT 24 U/L (21-72); AST/SGOT 21 U/L (17-59); BLOOD UREA NITROGEN 8 mg/dl (9-20); CALCIUM 8.9 mg/dL (8.4-10.2); GFR AFRICAN-AMERICAN > 60; GFR NON-AFRICAN AMERICAN > 60
--- NOTE | 2018-03-12 07:52 | ED PDOC ---
- Laboratory Results Result Diagrams: 03/12/18 06:00 03/12/18 05:38 - ECG O2 Sat by Pulse Oximetry: 99 (RA) Pulse Ox Interpretation: Normal - Progress Re-evaluation Time: : Condition: Re-examined, Improved Medical Decision Making Medical Decision Making: Patient signed out to provider at [address] Katz pending sobriety. -- Documented by Aleksandra Laguna acting as a scribe for Lane Chowdhury MD. All medical record entries made by the Scribe were at my direction and personally dictated by me. I have reviewed the chart and agree that the record accurately reflects my personal performance of the history, physical exam, medical decision making, and the department course for this patient. I have also personally directed, reviewed, and agree with the discharge instructions and disposition. Disposition Doctor Will See Patient In The: Office Counseled Patient/Family Regarding: Studies Performed, Diagnosis, Need For Followup - Clinical Impression Clinical Impression: Alcohol use - POA Present On Arrival: None - Disposition Disposition: Routine/Home Disposition Time: :03 Condition: GOOD Additional Instructions: Follow up with your PCP in 2-3 days. Instructions: Alcohol Use - When Is Drinking a Problem?
[2018-03-12 09:02] VITALS: RESP 18; TEMP 97.8
[2018-03-12 09:50] VITALS: BP 122/70; PULSE 76; O2SAT 100
== END 2018-03-12 09:49 | disposition home or self-care (01) ==
LOC: H.ER 05:10
DX: F10.10 Alcohol abuse, uncomplicated (principal); R10.9 Unspecified abdominal pain; R11.2 Nausea with vomiting, unspecified
CPT/HCPCS: 80053; 80320; 85027; 96374; 99282; J2405; J7030